=== PATIENT | male | born 1975 | race Caucasian/White ===

== ENCOUNTER → 2016-11-21 | Outpatient (CLI) | payer BC ==
[~2016-11-21] MED LIST: UNABLE
== END ==
LOC: BHSO 13:56
DX: F41.1 Generalized anxiety disorder (principal)

== ENCOUNTER → 2017-09-04 | Outpatient (CLI) | payer BC | LOC: COL.RAD 09:18 | DX: Z98.1 Arthrodesis status (principal) ==